=== PATIENT | male | born 1965 | race Caucasian/White ===

== ENCOUNTER 2023-09-26 16:27 | Emergency (ER) | payer SELFPAY ==
[2023-09-26 16:27] VITALS: BP 125/94; PULSE 108; RESP 18; TEMP 37.8; O2SAT 98
--- NOTE | 2023-09-26 16:44 | ED.EXTPRO ---
HPI - Extremity Problem General Chief complaint: Extremity Problem,Nontraumatic Stated complaint: LLL PAIN WITH EDEMA History of Present Illness HPI Narrative: Pt presents with left leg pain and swelling for 4 days. Pt denies injury. Pt denies SOB or CP. Pt says he noticed it swelling 4 days ago and it has persisted and it hurts to bear weight. Pt has not been on recent trip or had recent surgery and has no known FH of blood clots. Related Data Allergies Allergy/AdvReac Type Severity Reaction Status Date / Time No Known Allergies Allergy Verified 09/26/23 16:43 Review of Systems Review of Systems: All systems reviewed & are unremarkable except as noted in HPI and below PMFSH Family History Family History (Updated 08/06/20 @ 10:03 by Félix Moctezuma APRN) Mother Diabetes mellitus Father Family history of malignant neoplasm of brain, Onset Age: 70 Patient's father is Family history of malignant neoplasm Sibling Patient's sister is in good health Patient's brother is in good health Social History Social History (Updated 08/06/20 @ 10:05 by Félix Moctezuma APRN) Smoking status: Former smoker Smokeless tobacco user: chewing tobacco Alcohol intake: never Substance use: never Living arrangements: with family Occupation/Education: occupation Additional occupation/education comments: Works at [employer] in [place] Gender identity (if verbalized by the patient): Male Sexual Orientation (if Verbalized by the Patient): Straight or Heterosexual Exam Const: General: healthy appearing and no acute distress Nutritional Appearance: well nourished Orientation/consciousness: patient oriented x3 Limitations: no limitations Resp: Effort & Inspection: normal respiratory effort Auscultation: clear to auscultation bilaterally Cardio: Rate: regular rate Rhythm: regular rhythm GI: GI Palp: Yes Soft to palpation and No Tenderness to palpation present (GI) Auscultation: normal bowel sounds Neuro: General: patient oriented x3, moves all extremities and no focal motor deficits Extrem: Other: LLE swollen and tender in back of left calf up to above the knee. Positive DP pulse, left foot swollen as well. Psych: Mental Status: mental status grossly normal Affect: normal affect Attitude: cooperative Course Vital Signs Vital signs: Vital Signs Temperature 100.1 F H 09/26/23 16:27 Pulse Rate 108 H 09/26/23 16:27 Respiratory Rate 18 09/26/23 16:27 Blood Pressure 125/94 H 09/26/23 16:27 Pulse Oximetry 98 09/26/23 16:27 Oxygen Delivery Room Air 09/26/23 16:27 Temperature 100.0 F H 09/26/23 18:32 Pulse Rate 75 09/26/23 18:32 Respiratory Rate 18 09/26/23 18:32 Blood Pressure 139/87 09/26/23 18:32 Pulse Oximetry 97 09/26/23 18:32 Oxygen Delivery Room Air 09/26/23 18:32 MDM - Extremity (Nontraumatic) MDM Narrative Medical decision making narrative: pt presents with non traumatic left leg swelling and pain. Clinical suspicion for DVT is fairly high. US not available now. Labs ordered and look fine. Will give pt Lovenox 1mg/kg SQ and outpatient order for venous doppler for tomorrow. Pt instructed to limit activity tonight and rest as much as possible. Pt is to return if he becomes SOB or has CP. Pt is instructed to return to ER if he has any problems. Lab Data 09/26/23 17:14 09/26/23 17:14 Labs: Lab Results 09/26/23 Range/Units 17:14 WBC 10.0 (4.8-10.8) K/mm3 RBC 5.21 (4.70-6.10) M/mm3 Hgb 14.0 (14.0-18.0) g/dL Hct 44.2 (40.0-54.0) % MCV 84.8 (78.0-102.0) fL MCH 26.9 L (27.0-31.0) pg MCHC 31.7 L (32-36) g/dL RDW 12.1 (11.6-14.4) % Plt Count 187 (150-420) K/mm3 MPV 9.3 (8.7-11.0) fl Immature Gran % (Auto) 0.3 H (0.0-0.0) % Neut % (Auto) 75.5 H (50.0-70.0) % Lymph % (Auto) 14.3 L (18.0-42.0) % [place] % (Auto) 8.8 (2.0-11.0) % Eos % (Auto)
[2023-09-26 17:17] LABS: Basophils Absolute Auto 0.04 K/mm3 (0.00-0.10); Basophils Percent Auto 0.4 % (0.0-1.0); Eosinophils Absolute Auto 0.07 K/mm3 (0.02-0.50); Eosinophils Percent Auto 0.7 % (1.0-6.0); Hematocrit 44.2 % (40.0-54.0); Immature Granulocyte Absolute 0.03 K/mm3 (0.00-0.00); Immature Granulocyte Percent A 0.3 % (0.0-0.0); Lymphocytes Absolute Auto 1.43 K/mm3 (1.10-4.50); Lymphocytes Percent Auto 14.3 % (18.0-42.0); Mean Corpuscular HGB Conc 31.7 g/dL (32-36); Mean Corpuscular Hemoglobin 26.9 pg (27.0-31.0); Mean Corpuscular Volume 84.8 fL (78.0-102.0); Mean Platelet Volume 9.3 fl (8.7-11.0); Monocytes Absolute Auto 0.88 K/mm3 (0.10-0.90); Monocytes Percent Auto 8.8 % (2.0-11.0); Neutrophils Absolute Auto 7.55 K/mm3 (1.70-7.20); Neutrophils Percent Auto 75.5 % (50.0-70.0); Platelet Count Result 187 K/mm3 (150-420); Red Blood Count 5.21 M/mm3 (4.70-6.10); Red Cell Distribution Width 12.1 % (11.6-14.4)
[2023-09-26 17:26] LABS: Anion Gap 9 mmol/L (4-12); Blood Urea Nitrogen 15 mg/dL (7-18); Calcium 8.8 mg/dL (8.5-10.1); Carbon Dioxide 29 mmol/L (21-32); Chloride 103 mmol/L (98-108); Estimated Glomerular Filt Rate > 60; Glucose 111 mg/dL (70-99); Osmolality Calculated 293 mOsm/kg (285-295); Sodium 141 mmol/L (136-145)
--- NOTE | 2023-09-26 17:32 | PC.NURSE ---
PT IS AWAITING RESULTS AT THIS TIME. WILL CONTINUE TO MONITOR.
[2023-09-26 17:36] LABS: INR 0.9; Partial Thromboplastin Time 25.9 Sec (23.9-30.70); Prothrombin Time 10.4 Seconds (9.50-12.1)
[2023-09-26] MEDS: ENOXAPARIN 100 MG/ML SYRINGE 90 MG SUB-Q (17:57)
--- NOTE | 2023-09-26 18:29 | PC.NURSE ---
PT AND ADVISED OF ULTRASOUND TIMES FOR [facility] [place] FOR TOMORROW. OUTPT FORM PROVIDED TO PT WITH INFORMATION TO SCHEDULE. EDUCATED PT ON SX FOR RETURN TO ER.
[2023-09-26 18:32] VITALS: BP 139/87; PULSE 75; RESP 18; TEMP 37.8; O2SAT 97
--- NOTE | 2023-09-26 18:45 | PC.NURSE ---
LEFT MESSAGE WITH [facility] TO NOT FILL THE HYDROCODONE, RX WAS SENT TO [facility] SO PT CAN HAVE THEM TONIGHT AND [facility] WAS CLOSED.
== END 2023-09-26 18:33 | disposition home or self-care (01) ==
PROVIDERS: Emergency Provider Emergency Medicine
DX: R22.42 Localized swelling, mass and lump, left lower limb (principal)
CPT/HCPCS: 36415; 80048; 85025; 85610; 85730; 96372; 99283; J1650

== ENCOUNTER 2023-09-27 09:55 | Outpatient (CLI) | payer SELFPAY ==
--- NOTE | ~2023-09-27 | US_ITS ---
EXAMINATION: US venous doppler [facility] DATE: 09/27/2023 10:24 INDICATION: Lower limb pain and swelling. TECHNIQUE: Grayscale ultrasound images without and with compression and Doppler ultrasound images of the left lower extremity veins were obtained. COMPARISON: None. FINDINGS: The visualized portions of left common femoral vein, profunda (deep) femoral vein, and greater saphen ous vein outflow are patent. There is thrombus in left femoral, popliteal, posterior tibial, peroneal , and gastrocnemius veins. IMPRESSION: 1. Deep vein thrombosis involving left femoral, popliteal, posterior tibial, peroneal, and gastrocne mius veins. Reviewed, dictated and finalized at location A. IMPRESSION: 1. Deep vein thrombosis involving left femoral, popliteal, posterior tibial, p eroneal, and gastrocnemius veins.
== END 2023-09-27 09:56 | disposition home or self-care (01) ==
PROVIDERS: PCP Emergency Medicine; Visit Provider Emergency Medicine
DX: M79.89 Other specified soft tissue disorders (principal); I82.412 Acute embolism and thrombosis of left femoral vein; I82.432 Acute embolism and thrombosis of left popliteal vein; I82.442 Acute embolism and thrombosis of left tibial vein; I82.462 Acute embolism and thrombosis of left calf muscular vein
CPT/HCPCS: 93971

== ENCOUNTER 2023-09-27 10:33 | Emergency (ER) | payer SELFPAY ==
[2023-09-27] VITALS (14 sets, daily range): BP systolic 121–128; BP diastolic 76–90; PULSE 59–74; RESP 16–25; TEMP 36.6; O2SAT 96–98
--- NOTE | 2023-09-27 10:35 | ED.LOWEXIN ---
HPI - Extremity Injury (Lower) General Chief Complaint: Extremity Injury, Lower Stated Complaint: L LEG BLOOD CLOT Time Seen by Provider: 09/27/23 10:33 Source: patient Mode of arrival: ambulatory Limitations: no limitations History of Present Illness HPI Narrative: Patient is a 57-year-old male with left lower extremity pain and swelling for the last 4 days. He came to the ER yesterday and they gave him a shot of Lovenox and ordered an ultrasound done for today. DVT was considered. patient services technician came and told us that there is large DVT in the left lower extremity and sent him to the ER. complaint: other ( Left lower extremity pain and swelling without injury) Onset (ago): day(s) (4) Injury: Left: thigh Place: home ( acute onset and will come from sleep 4 days ago) Severity: moderate Severity scale (1-10): 5 Relieving factors: nothing Exacerbating factors: nothing Context: other ( no injury) Associated symptoms: swelling and tingling ( pain) Other symptoms: none ( no shortness of breath) Related Data Allergies Allergy/AdvReac Type Severity Reaction Status Date / Time No Known Allergies Allergy Verified 09/26/23 16:43 Review of Systems Review of Systems: All systems reviewed & are unremarkable except as noted in HPI and below Constitutional: Constitutional: Reports no additional constitutional complaints Eyes: Eyes: Reports no additional eye complaints ENT: Reports system reviewed and no additional complaints, except as documented Cardiovascular: Cardiovascular: Reports no additional cardiovascular complaints Respiratory: Respiratory: Reports no additional respiratory complaints Gastrointestinal: Gastrointestinal: Reports no additional gastrointestinal complaints Genitourinary: Genitourinary: Reports no additional male genitourinary complaints Musculoskeletal: Musculoskeletal: Reports no additional musculoskeletal complaints Integumentary/Breasts: Skin/Breast: Reports system reviewed and no additional complaints, except as docu Neurologic: Reports system reviewed and no additional complaints, except as documented Psychiatric: Psychiatric: Reports no additional psychiatric complaints Endocrine: Endocrine: Reports no additional endocrine complaints Hematologic/Lymphatic: Hematologic/Lymphatic: Reports no additional hematologic/lymphatic complaints Allergic/Immunologic: Allergic/Immunologic: Reports no additional allergic/immunologic complaints PMFSH Family History Family History Mother Diabetes mellitus Father Family history of malignant neoplasm of brain, Onset Age: 70 Patient's father is Family history of malignant neoplasm Sibling Patient's sister is in good health Patient's brother is in good health Social History Social History Smoking status: Former smoker Smokeless tobacco user: chewing tobacco Alcohol intake: never Substance use: never Living arrangements: with family Occupation/Education: occupation Additional occupation/education comments: Works at [employer] in [place] Gender identity (if verbalized by the patient): Male Sexual Orientation (if Verbalized by the Patient): Straight or Heterosexual Exam Const: General: healthy appearing Nutritional Appearance: well nourished Orientation/consciousness: patient oriented x3 HENMT: Head: normal to inspection Ears: external ears normal Face/Nose/Sinus: Normal external nose present Eyes: Conjunctivae: conjunctivae normal Pupils: Equal, round and reactive pupils present EOM: EOMs intact bilaterally Neck: Neck: normal visual inspection Chest: Chest palpation & inspection: normal inspection of the chest Resp: Effort & Inspection: normal respiratory effort and not labored Auscultation: clear to auscultation bilaterally Cardio: Rate: regular rate Rhythm: regular rhythm He
[2023-09-27] MEDS: ENOXAPARIN 100 MG/ML SYRINGE 90 MG SUB-Q (10:55)
[2023-09-27 11:01] LABS: Basophils Absolute Auto 0.04 K/mm3 (0.00-0.10); Basophils Percent Auto 0.5 % (0.0-1.0); Eosinophils Absolute Auto 0.03 K/mm3 (0.02-0.50); Eosinophils Percent Auto 0.3 % (1.0-6.0); Hematocrit 44.4 % (40.0-54.0); Hemoglobin 14.2 g/dL (14.0-18.0); Immature Granulocyte Absolute 0.03 K/mm3 (0.00-0.00); Immature Granulocyte Percent A 0.3 % (0.0-0.0); Lymphocytes Absolute Auto 1.33 K/mm3 (1.10-4.50); Lymphocytes Percent Auto 15.2 % (18.0-42.0); Mean Corpuscular Hemoglobin 27.3 pg (27.0-31.0); Mean Corpuscular Volume 85.4 fL (78.0-102.0); Mean Platelet Volume 9.5 fl (8.7-11.0); Monocytes Percent Auto 10.3 % (2.0-11.0); Neutrophils Absolute Auto 6.44 K/mm3 (1.70-7.20); Neutrophils Percent Auto 73.4 % (50.0-70.0); Platelet Count Result 184 K/mm3 (150-420); White Blood Count 8.8 K/mm3 (4.8-10.8)
[2023-09-27 11:15] LABS: INR 0.9; Partial Thromboplastin Time 28.3 Sec (23.9-30.70); Prothrombin Time 10.4 Seconds (9.50-12.1)
[2023-09-27 11:17] LABS: Alanine Aminotransferase 21 U/L (16-63); Albumin Level 3.4 g/dL (3.4-5.0); Alkaline Phosphatase 124 U/L (46-116); Anion Gap 7 mmol/L (4-12); Aspartate Amino Transferase 16 U/L (15-37); Bilirubin,Total 1.4 mg/dL (0.00-1.00); Blood Urea Nitrogen 18 mg/dL (7-18); Calcium 8.5 mg/dL (8.5-10.1); Carbon Dioxide 31 mmol/L (21-32); Chloride 100 mmol/L (98-108); Estimated CRCL calculation 69 ml/min; Estimated Glomerular Filt Rate > 60; Glucose 106 mg/dL (70-99); Osmolality Calculated 287 mOsm/kg (285-295); Potassium 4.5 mmol/L (3.5-5.1); Sodium 138 mmol/L (136-145); Total Protein 7.5 g/dL (6.4-8.2)
--- NOTE | 2023-09-27 11:37 | PC.NURSE ---
at the bedside. patient denies any needs at this time
--- NOTE | 2023-09-27 11:50 | PC.NURSE ---
ERP AT BEDSIDE. PT AND REQUEST [facility] FOR TRANSFER.
--- NOTE | 2023-09-27 12:28 | PC.NURSE ---
resting on stretcher. went home with personal items. patient has underwear, cell phone and glasses with him
--- NOTE | 2023-09-27 13:13 | PC.NURSE ---
patient received bed assignment room 600 at [facility]. Socorro YANCEY gave report to Kiesha YANCEY
--- NOTE | 2023-09-27 13:23 | PC.NURSE ---
back at the bedside. updated on bed assignment at [facility] and that ambulance arrangements were made. verbalized understanding
== END 2023-09-27 13:42 | disposition short-term general hospital (02) ==
PROVIDERS: Emergency Provider Emergency Medicine
DX: I82.412 Acute embolism and thrombosis of left femoral vein (principal); I82.432 Acute embolism and thrombosis of left popliteal vein; I82.442 Acute embolism and thrombosis of left tibial vein; I82.452 Acute embolism and thrombosis of left peroneal vein; I82.462 Acute embolism and thrombosis of left calf muscular vein
CPT/HCPCS: 36415; 80053; 85025; 85610; 85730; 96372; 99285; J1650